=== PATIENT | male | born 1960 | race Caucasian/White ===

== ENCOUNTER → 2016-06-05 | Outpatient (CLI) | payer OTHER ==
[~2016-06-05] MED LIST: DILAUDID2 MG PO; FLOMAX0.4 MG PO; HYDROCODON-ACE1 EAC7 PO; LISINOPRIL-HCT1 EAC3 PO; LISINOPRIL5 MG PO; MELOXICAM15 MG PO; NABUMETONE750 MG PO; OXYCODONE HCL5 M1 PO; POTASSIUM; PRAVACHOL20 MG PO; TRAMADOL HCL50 MG PO
== END | disposition home or self-care (01) ==
LOC: NUC 08:53
DX: M54.16 Radiculopathy, lumbar region (principal); M25.551 Pain in right hip; M51.37 Other intervertebral disc degeneration, lumbosacral region; Z96.641 Presence of right artificial hip joint; Z96.652 Presence of left artificial knee joint
CPT/HCPCS: 78315; A9503

== ENCOUNTER 2017-11-17 22:46 | Inpatient (IN) | payer OTHER ==
[~2017-11-17] VITALS: Ht 175.3 cm; Wt 123.0 kg
[~2017-11-17 22:46] MED LIST changes: +IRON325 M1 PO; +TYLENOL325 M2 PO
[2017-11-18 06:24] VITALS: BP 134/82
[2017-11-18 10:53] VITALS: BP 126/71
[2017-11-18 15:58] VITALS: BP 150/78
[2017-11-18 20:18] VITALS: BP 122/75
[2017-11-19 00:19] VITALS: BP 130/74
[2017-11-19 04:17] VITALS: BP 105/55
[2017-11-19 06:25] LABS: HEMATOCRIT 33.2 % (38.0-50.0); MCV 93.8 FL (86-99)
[2017-11-19 06:28] LABS: HEMOGLOBIN 11.3 G/DL (12.5-16.6)
[2017-11-19 06:44] LABS: CHLORIDE 99 MEQ/L (99-109); CREATININE 0.7 MG/DL (0.6-1.3); GFR ESTIMATE (CALCULATED) > 59 mL/min/ (58.99-99999); GLUCOSE 116 mg/dL (70-99); POTASSIUM 4.3 MEQ/L (3.7-5.4); SODIUM 134 MEQ/L (136-147); UREA NITROGEN (BUN) 18 mg/dL (9-23)
[2017-11-19 08:00] VITALS: BP 110/61
[2017-11-19 12:29] VITALS: BP 141/68
[2017-11-19 15:33] VITALS: BP 117/61
[2017-11-19 20:08] VITALS: BP 119/62
[2017-11-20 00:10] VITALS: BP 107/58
[2017-11-20 04:17] VITALS: BP 115/66
[2017-11-20 07:48] LABS: HEMATOCRIT 32.7 % (38.0-50.0); HEMOGLOBIN 11.2 G/DL (12.5-16.6); MCV 94.5 FL (86-99)
[2017-11-20 08:10] VITALS: BP 108/57
[2017-11-20] MEDS ORDERED: BENADRYL25 MG PO (08:43)
[2017-11-20] MEDS ORDERED: TYLENOL REGULA325 MG PO (08:50)
[2017-11-20] MEDS ORDERED: Salonpas 4% Patch TD (08:51)
[2017-11-20] MEDS ORDERED: BISACODYL5 MG PO (08:51)
[2017-11-20] MEDS ORDERED: ELIQUIS2.5 MG PO (08:52)
[2017-11-20] MEDS ORDERED: OXYCODONE HCL5 MG PO (08:52)
[2017-11-20] MEDS ORDERED: OXYCONTIN10 MG PO (08:52)
[2017-11-20] MEDS ORDERED: GABAPENTIN100 MG PO (08:52)
[2017-11-20 11:46] VITALS: BP 100/58
== END 2017-11-20 13:13 | DRG 470 ==
LOC: ENRESERV 22:46 → 2SOUTH 11-18 03:43 → 3WEST 11-18 05:36 → 2SOUTH 11-18 07:14 → 3WEST 11-18 10:35 → 2SOUTH 11-18 14:57 → 3WEST 11-20 13:13
PROVIDERS: Orthopaedic Surgery
PROC: 0SRB04A Replacement of Left Hip Joint with Ceramic on Polyethylene Synthetic Substitute, Uncemented, Open Approach (ICD-10-PCS; principal; 2017-11-18)
DX: M16.12 Unilateral primary osteoarthritis, left hip (principal); Z68.41 Body mass index [BMI] 40.0-44.9, adult; E66.9 Obesity, unspecified
CPT/HCPCS: 73501; 73522; 80048; 85014; 85018; 97530 GP; J0690; J1170; J2250; J2405; J3010; J7050; S0020